=== PATIENT | female | born 1955 | race Caucasian/White ===

== ENCOUNTER 2019-10-29 08:21 | Outpatient (CLI) | payer BC, SELFPAY ==
--- NOTE | 2019-10-29 08:33 | MM_ITS ---
WS: [id number] BILATERAL SCREENING DIGITAL MAMMOGRAM WITH CAD HISTORY: SCREENING COMPARISON: 07/31/2018, 05/29/2017 Bilateral CC and MLO views submitted. Computer aided detection analyzed. Breast composition: There are scattered areas of fibroglandular density. No suspicious masses, microc alcifications or architectural distortion. Benign lymph nodes in each breast. MM/[place] [id number] IMPRESSION: BI-RADS: 2-Benign FOLLOW UP: 1 Year Follow-up
== END 2019-10-29 08:22 | disposition home or self-care (01) ==
LOC: RADSHAW 08:26
PROVIDERS: Family Provider Internal Medicine; PCP Internal Medicine; Visit Provider Internal Medicine
DX: Z12.31 Encounter for screening mammogram for malignant neoplasm of breast (principal)
CPT/HCPCS: 77067

== ENCOUNTER 2020-11-25 10:31 | Outpatient (CLI) | payer BC, SELFPAY ==
--- NOTE | 2020-11-25 10:37 | MM_ITS ---
WS: [id number] SCREENING DIGITAL MAMMOGRAM WITH CAD HISTORY: SCREENING COMPARISON: 10/29/2019 and 07/31/2018 Bilateral CC and MLO views submitted. Computer aided detection analyzed. Breast composition: There are scattered areas of fibroglandular density. No suspicious masses, microc alcifications or architectural distortion. MM/[place] [id number] IMPRESSION: BI-RADS: 1-Negative FOLLOW UP: 1 Year Follow-up
== END 2020-11-25 10:32 | disposition home or self-care (01) ==
LOC: RADSHAW 10:34
PROVIDERS: PCP Internal Medicine; Visit Provider Internal Medicine
DX: Z12.31 Encounter for screening mammogram for malignant neoplasm of breast (principal)
CPT/HCPCS: 77067

== ENCOUNTER 2021-03-31 06:03 | Outpatient (CLI) | payer OTHER, SELFPAY ==
[2021-03-31 06:34] VITALS: BP 156/102; PULSE 72; RESP 18; TEMP 36.3; O2SAT 99
--- NOTE | 2021-03-31 07:18 | ED_ITS ---
HPI - General Adult General: Source: patient Mode of arrival: ambulatory Limitations: no limitations History of Present Illness: HPI narrative: Patient here for Covid infusion. Diagnosed with Covid recently. complaint: Covid infusion Severity: mild Associated symptoms: Reports cough; Deny chest pain, dyspnea, headache(s), nausea, rash, palpitations or vomiting Treatments prior to arrival: none Review of Systems Const: Denies: fever(s) or chills Eyes: Denies: change in vision ENMT: Denies: throat pain Card: Denies: chest pain or palpitations Resp: Reports: productive cough (Clear sputum); Denies: dyspnea GI: Denies: abdominal pain, nausea or vomiting : Denies: flank pain Musc: Denies: neck pain or back pain Skin/Breast: Denies: rash or pruritus Neuro: Denies: headache(s) or numbness in extremities Psych: Denies: anxiety Gio/Lymph: Denies: enlarged lymph nodes PFSH ED PFSH: Medical History Depression HTN (hypertension) Family History Other CAD (coronary artery disease) Social History Smoking and tobacco status: former smoker History of recent travel: No Physical Exam Const: COMMON NORMALS: no acute distress, patient oriented x3, no limitations and well nourished GENERAL APPEARANCE: cooperative HENMT: COMMON NORMALS: normocephalic and atraumatic HEAD & SCALP: normocephalic and atraumatic FACE & SINUS: normal facial exam Eye: COMMON NORMALS: EOMs intact bilaterally Neck/C-Spine: COMMON NORMALS: full ROM, no lymphadenopathy, supple and no meningeal signs GENERAL: Yes normal visual inspection Lymph: LYMPHATIC: no lymphadenopathy noted Chest: COMMONS NORMALS: normal inspection of the chest and normal palpation of entire chest wall CHEST: No Ecchymosis present and No rash Resp: COMMON NORMALS: normal respiratory effort, No retractions and clear to auscultation bilaterally EFFORT & INSPECTION: No respiratory distress AUSCULTATION: clear to auscultation bilaterally Cardio: COMMON NORMALS: regular rate, regular rhythm and Peripheral pulses 2+ throughout JUGULAR VENOUS DISTENTION: no JVD RATE: regular rate RHYTHM: regular rhythm PERIPHERAL PULSES: Peripheral pulses 2+ throughout GI: COMMON NORMALS: Normal to inspection, nondistended, normoactive bowel sounds present and non-tender : COMMON NORMALS: Yes no CVA tenderness BLADDER/KIDNEY EXAM: Yes no CVA tenderness Back/Pelvis: COMMON NORMALS: no CVA tenderness Extremity: COMMON NORMALS: normal to inspection, full ROM and capillary refill normal Neuro: COMMON NORMALS: patient oriented x3, CN's II-XII intact bilaterally, no focal motor deficits and no sensory deficits noted MENINGEAL SIGNS: Yes no meningeal signs Psych: COMMON NORMALS: mental status grossly normal and Normal thought process present THOUGHT PROCESS: Normal thought process present Skin: COMMON NORMALS: no rashes or lesions noted and no wounds GENERAL SKIN EXAM: no rashes or lesions noted Course Vital Signs: Vital signs: Vital Signs Temperature 97.4 F L 03/31/21 06:34 Pulse Rate 72 03/31/21 06:34 Respiratory Rate 18 03/31/21 06:34 Blood Pressure 156/102 03/31/21 06:34 Pulse Oximetry 99 03/31/21 06:34 Discharge Plan Discharge Patient Disposition: Home Prescriptions: No Action metoprolol tartrate 25 mg tablet 12.5 mg PO BID RF: 0 duloxetine [Cymbalta] 60 mg capsule,delayed release(DR/EC) 60 mg PO DAILY RF: 0 aspirin [Adult Aspirin Regimen] 81 mg tablet,delayed release (DR/EC) 81 mg PO DAILY RF: 0 ciclopirox 8 % solution 1 applic topical DAILY Qty: 6.6 RF: 3 ketoconazole 2 % cream 1 applic topical BID Qty: 60 RF: 2 Referrals: Jeana Chinchilla MD [Primary Care Provider] - Coding Level of Care Code ED Registered Nurse Practitioner for [place]
[2021-03-31 09:53] VITALS: BP 133/90; PULSE 69; RESP 15; O2SAT 97
[2021-03-31 11:04] VITALS: BP 123/90; PULSE 68; RESP 16; O2SAT 98
--- NOTE | 2021-03-31 11:05 | PC.NURSE ---
PT RCVD INFUSION AND MONITORED FOR ONE HOUR POST INFUSION WITH NO ADVERSE EFFECTS OBSERVED OR REPORTED. PT WILL BE DC HOME.
== END 2021-03-31 06:04 | disposition home or self-care (01) ==
PROVIDERS: PCP Internal Medicine; Visit Provider Internal Medicine
DX: U07.1 COVID-19 (principal)
CPT/HCPCS: 96365

== ENCOUNTER → 2021-12-13 14:23 | Outpatient (BNVA) | payer MEDICARE, SELFPAY | PROVIDERS: PCP Internal Medicine; Visit Provider Nurse Practitioner Family | DX: S82.142A Displaced bicondylar fracture of left tibia, initial encounter for closed fracture (principal); M25.472 Effusion, left ankle; M25.572 Pain in left ankle and joints of left foot; W19.XXXA Unspecified fall, initial encounter; Y92.009 Unspecified place in unspecified non-institutional (private) residence as the place of occurrence of the external cause; M25.562 Pain in left knee | CPT/HCPCS: 73562; 73610 ==

== ENCOUNTER 2021-12-14 16:00 | Outpatient (CLI) | payer MEDICARE, SELFPAY | END 2021-12-14 16:01 | disposition home or self-care (01) | LOC: SPT 16:03 | PROVIDERS: PCP Internal Medicine; Visit Provider Specialist | DX: Z46.89 Encounter for fitting and adjustment of other specified devices (principal); S82.222D Displaced transverse fracture of shaft of left tibia, subsequent encounter for closed fracture with routine healing; X58.XXXD Exposure to other specified factors, subsequent encounter | CPT/HCPCS: 97760; L1812 ==

== ENCOUNTER 2021-12-15 14:14 | Outpatient (CLI) | payer MEDICARE, SELFPAY ==
--- NOTE | 2021-12-15 14:30 | CTR_ITS ---
PROCEDURE INFORMATION: Exam: CT Left Lower Extremity Without Contrast, Knee Exam date and time: 12/15/2021 2:38 PM Age: 65 years old Clinical indication: Injury or trauma; Blunt trauma; Knee; Left; Injury details: Fall x1 wk, PT states surgery scheduled 12/16/2021; Additional info: S82.209a - unspecified fracture of shaft of unspecified t. . . , Stat/emergent TECHNIQUE: Imaging protocol: CT of the Left lower extremity without contrast was performed. Exam focused on the knee. Axial, coronal and sagittal reformatted images were created and reviewed. Radiation optimization: All CT scans at this facility use at least one of these dose optimization techniques: automated exposure control; mA and/or kV adjustment per patient size (includes targeted exams where dose is matched to clinical indication); or iterative reconstruction. COMPARISON: CR XR knee LT 3V* [id number] 12/13/2021 2:37 PM RADIATION DOSE METRICS: Total DLP (mGy-cm): 413.04 FINDINGS: Bones/joints: Comminuted, mildly displaced fracture through the posterior aspect of the lateral tibial plateau with approximately 3 mm depression. No dislocation. Moderate hemarthrosis. Soft tissues: Mild anterior soft tissue swelling. CT/CT knee LT wo con* [id number] IMPRESSION: 1. Lateral tibial plateau fracture, as described above. 2. Additional findings, as above.
== END 2021-12-15 14:15 | disposition home or self-care (01) ==
LOC: RAD 14:20
PROVIDERS: PCP Internal Medicine; Visit Provider Specialist
DX: S82.202A Unspecified fracture of shaft of left tibia, initial encounter for closed fracture (principal); X58.XXXA Exposure to other specified factors, initial encounter
CPT/HCPCS: 73700; 87635

== ENCOUNTER → 2021-12-21 09:13 | Outpatient (BNVA) | payer MEDICARE, SELFPAY | PROVIDERS: PCP Internal Medicine; Visit Provider Specialist | DX: S82.122A Displaced fracture of lateral condyle of left tibia, initial encounter for closed fracture (principal); X58.XXXA Exposure to other specified factors, initial encounter | CPT/HCPCS: 73560; 73562 ==

== ENCOUNTER → 2022-01-11 15:09 | Outpatient (BNVA) | payer MEDICARE, SELFPAY | PROVIDERS: PCP Internal Medicine; Visit Provider Specialist | DX: S82.122D Displaced fracture of lateral condyle of left tibia, subsequent encounter for closed fracture with routine healing (principal); W11.XXXD Fall on and from ladder, subsequent encounter | CPT/HCPCS: 73560; 73565 ==

== ENCOUNTER 2022-02-28 10:04 | Outpatient (CLI) | payer MEDICARE, SELFPAY ==
--- NOTE | 2022-02-28 10:16 | MM_ITS ---
WS: [id number] Bilateral screening 3D tomosynthesis digital mammogram, 02/28/2022 Clinical Data: SCREENING Comparison: 11/25/2020, 10/29/2019, 07/31/2018, 05/29/2017, 09/09/2015, 08/06/2013, 11/01/2011, 10/13/2011, 06/23/2010, 03/02/2029, 02/07/2028, 02/15/2007. Findings: The breast parenchymal pattern shows fibroglandular tissue No spiculated masses or clustered calcific ations are seen. There are no secondary signs of carcinoma. MM/[place] [id number] Impression: 1. Negative bilateral mammogram unchanged. 2. Recommend annual screening mammograms. BIRADS: 1-Negative FOLLOW UP: 1 Year Follow-up The CAD fish checker was used.
== END 2022-02-28 10:05 | disposition home or self-care (01) ==
LOC: RAD 10:07
PROVIDERS: PCP Internal Medicine; Visit Provider Internal Medicine
DX: Z12.31 Encounter for screening mammogram for malignant neoplasm of breast (principal)
CPT/HCPCS: 77063; 77067

== ENCOUNTER 2022-03-01 15:42 | Emergency (ER) | payer MEDICARE, SELFPAY ==
--- NOTE | 2022-03-01 16:02 | ED_ITS ---
HPI - Chest Pain General: Chief Complaint: Chest Pain Stated Complaint: CHEST PAIN Time Seen by Provider: 03/01/22 15:49 Source: patient Mode of arrival: ambulatory Limitations: no limitations History of Present Illness: 66-year-old female presents emergency room with complaints of lower sternal chest pain. Pain has been going on for last 3 days is worse today she is not noticing thing exacerbates or relieves it although during exam there was worsened by palpation but not by inspiration. She has no known history of coronary disease she is not diabetic. She is not taking anything for it at this point. MD complaint: chest pain Pertinent past history: coronary artery disease Onset (ago): minute(s) Timing of current episode: episodic Onset: during rest Pain location: right chest and epigastric Pain radiation: none Severity: mild Quality: sharp Relieving factors: nothing Exacerbating factors: nothing Associated symptoms: Deny abdominal pain, diaphoresis, dyspnea, fever(s), leg edema, nausea, palpitations, sense of impending doom, syncope or vomiting Treatment prior to arrival: aspirin (By EMS) and nitroglycerin (By EMS) Review of Systems Const: Denies: fever(s), chills or diaphoresis ENMT: Denies: throat pain, ear or mastoid pain, nasal discharge or nasal congestion Card: Reports: chest pain; Denies: palpitations, irregular heart rhythm, edema or syncope Resp: Denies: dyspnea, productive cough or non-productive cough GI: Denies: abdominal pain, nausea or vomiting : Denies: flank pain, difficulty voiding, dysuria, urinary frequency or urinary urgency Skin/Breast: Denies: rash or pruritus PFSH ED PFSH: Medical History Depression History of nonmelanoma skin cancer HTN (hypertension) Family History Other CAD (coronary artery disease) Social History Smoking and tobacco status: never smoked History of recent travel: No Physical Exam Const: GENERAL APPEARANCE: cooperative and comfortable ORIENTATION/CON SCIOUSNESS: Yes awake, Yes oriented to person, Yes oriented to place and Yes oriented to time HENMT: COMMON NORMALS: normocephalic, atraumatic and hearing grossly normal bilaterally HEAD & SCALP: normocephalic and atraumatic Neck/C-Spine: COMMON NORMALS: no JVD Resp: COMMON NORMALS: normal respiratory effort, No retractions, No use of accessory muscles and clear to auscultation bilaterally AUSCULTATION: clear to auscultation bilaterally Cardio: COMMON NORMALS: no JVD, regular rate, regular rhythm and No murmurs p resent (Cardio) RATE: regular rate RHYTHM: regular rhythm GI: COMMON NORMALS: Soft to palpation and No hepatosplenomegaly present AUSCULTATION: Yes normoactive bowel sounds PALPATION: Yes Soft to palpation, No Tenderness to palpation present (GI), No Guarding due to palpation present (GI) and Yes No hepatosplenomegaly present Extremity: COMMON NORMALS: normal to inspection, capillary refill normal, no clubbing, cyanosis or edema, no calf tenderness and no pedal edema Neuro: SENSORIUM/ORIENTATION: Yes oriented to person, Yes oriented to place and Yes oriented to time Skin: COMMON NORMALS: no rashes or lesions noted GENERAL SKIN EXAM: no rashes or lesions noted Course Vital Signs: Vital signs: Vital Signs Temperature 97.8 F 03/01/22 16:12 Pulse Rate 79 03/01/22 18:28 Respiratory Rate 19 H 03/01/22 18:28 Blood Pressure 147/92 03/01/22 18:28 Pulse Oximetry 100 03/01/22 18:28 MDM - Chest Pain Medical Decision Making Labs and EKG reviewed. She has had this for several days pain is very reproducible. Troponin is 6. [place] discharge home working to set her up for a outpatient stress test return to the ER if she has further problems. Medical Records I reviewed the patient's medical records. Lab Data I reviewed the patient's lab results. : 03/01/22 16:45 03/01/22 16:45 Radiology Impressions Chest X-Ray 03/01/22 16:03 IMPRESSION: No acute findings. Laboratory Results WBC 8.0 10^3/uL (4.0-10.0) 03/01/22 16:45 RBC 4.81 10^6/uL (4.1-5.3) 03/01/22 16:45 Hgb 14.3 g/dL (11.5-15.3) 03/01/22 16:45 Hct 43.1 % (37.0-47.0) 03/01/22 16:45 MCV 89.6 fl (81-99) 03/01/22 16:45 MCH 29.7 pg (28.0-34.0) 03/01/22 16:45 MCHC 33.2 g/dL (30.0-36.0) 03/01/22 16:45 RDW 12.4 % (12.1-15.1) 03/01/22 16:45 Plt Count 359 10^3/cmm (130-400) 03/01/22 16:45 MPV 10.3 fL (7.4-10.4) 03/01/22 16:45 Neut % (Auto) 62.1 % 03/01/22 16:45 Lymph % (Auto) 23.1 % 03/01/22 16:45 Mineral % (Auto) 11.7 % 03/01/22 16:45 Eos % (Auto) 1.4 % 03/01/22 16:45 Baso % (Auto) 1.4 % 03/01/22 16:45 Neut # (Auto) 4.94 10^3/uL (1.8-7.7) 03/01/22 16:45 Lymph # (Auto) 1.8 10^3/uL (0.8-4.8) 03/01/22 16:45 Mineral # (Auto) 0.9 10^3/uL (0.2-0.9) 03/01/22 16:45 Eos # (Auto) 0.1 10^3/uL (0.0-0.8) 03/01/22 16:45 Baso # (Auto) 0.1 10^3/uL (0.0-0.1) 03/01/22 16:45 Nucleated RBC % (auto) 0 % 03/01/22 16:45 Nucleated RBCs # 0.0 /100WBC 03/01/22 16:45 Sodium 138 mmol/L (136-145) 03/01/22 16:45 Potassium 4.0 mmol/L (3.5-5.1) 03/01/22 16:45 Chloride 102 mmol/L (98-107) 03/01/22 16:45 Carbon Dioxide 23 mmol/L (22-29) 03/01/22 16:45 Anion Gap 17.0 (5-19) 03/01/22 16:45 BUN 14 mg/dL (8-23) 03/01/22 16:45 Creatinine 0.7 mg/dL (0.5-0.9) 03/01/22 16:45 GFR Calculation 84.0 mL/min (90-130) L 03/01/22 16:45 Glucose 125 mg/dL (65-115) H 03/01/22 16:45 Calculated Osmolality 288 mOsm/kg (285-295) 03/01/22 16:45 Calcium 9.3 mg/dL (8.5-10.5) 03/01/22 16:45 Total Bilirubin 0.3 mg/dL (0.15-1.2) 03/01/22 16:45 AST 19 U/L (0-32) 03/01/22 16:45 ALT 25 U/L (0-33) 03/01/22 16:45 Alkaline Phosphatase 89 IU/L (35-105) 03/01/22 16:45 Troponin T Baseline 6 ng/L (0-10) 03/01/22 16:45 Total Protein 7.3 g/dL (6.6-8.7) 03/01/22 16:45 Albumin 4.3 g/dL (3.5-5.2) 03/01/22 16:45 Globulin 3.0 g/dL (1.3-4.6) 03/01/22 16:45 Discharge Plan Discharge Patient Disposition: Home Clinical Impression: Chest wall pain, Atypical chest pain Condition: Stable Prescriptions: No Action duloxetine [Cymbalta] 60 mg capsule,delayed release(DR/EC) 60 mg PO DAILY 0RF aspirin [Adult Aspirin Regimen] 81 mg tablet,delayed release (DR/EC) 81 mg PO DAILY 0RF (DME) Hinged Knee Brace See Rx Instructions .Route .MEDSUPPLY Qty: 1 0RF Rx Instructions: As directed lisinopril 20 mg Tablet 20 mg PO DAILY 0RF amlodipine 5 mg tablet 5 mg PO DAILY 0RF rosuvastatin 5 mg tablet 5 mg PO DAILY 0RF Discharge Orders: Discharge ED (Routine); Ordered 03/01/22 Ordered By: Marcus Riley Referrals: Jeana Chinchilla MD [Primary Care Provider] - Patient Instructions: Opioid Safety Activity Restrictions/Additional Instructions: Case management will call to make arrangements for you to have a follow-up outpatient Lexiscan sestamibi stress test. Coding Level of Care Code ED Skating Rink Manager for [place] Fwd Exam Comprehensive
--- NOTE | 2022-03-01 16:03 | XRR_ITS ---
PROCEDURE INFORMATION: Exam: XR Chest Exam date and time: 03/01/2022 4:27 PM Age: 66 years old Clinical indication: Pain; Angina pectoris; Additional info: Chest pain TECHNIQUE: Imaging protocol: XR of the chest. Views: 1 view. COMPARISON: CR Chest 1 [place] [id number] 06/20/2019 9:49 PM FINDINGS: Lungs: Unremarkable. No consolidation. Pleural spaces: Unremarkable. No pleural effusion. No pneumothorax. Heart/Mediastinum: Unremarkable. No cardiomegaly. Bones/joints: Unremarkable. XR/XR chest 1V portable [id number] IMPRESSION: No acute findings.
--- NOTE | 2022-03-01 16:04 | ECG_ITS ---
[facility] Test Date: 2022-03-01 Pat Name: Evita Caraballo Department: Room: Gender: Female Roving Or Yarn Color Checker: : 1955 Requested By: Marcus Sheridan Order Number: [id number] Karla MD: Danis Somers M.D. Measurements Intervals [place] Rate: 74 P: 14 PA: 121 QRS: 17 QRSD: 90 T: 48 QT: 374 QTc: 417 Interpretive Statements SINUS RHYTHM LOW QRS VOLTAGE IN PRECORDIAL LEADS [QRS DEFLECTION < 1.0 mV IN CHEST LEADS] NONSPECIFIC T-WAVE ABNORMALITY Compared to ECG 06/21/2019 01:00:38 No significant changes Electronically Signed On 03-01-2022 19:45:11 CDT by Danis Somers M.D. [id number]
[2022-03-01 16:12] VITALS: BP 150/83; PULSE 83; RESP 20; TEMP 36.6; O2SAT 99; BMI 39.8
[2022-03-01 16:15] VITALS: BP 150/83; PULSE 86; RESP 16; O2SAT 98
[2022-03-01 16:53] LABS: Basophils # 0.1 10^3/uL (0.0-0.1); Basophils % 1.4 %; Eosinophils # 0.1 10^3/uL (0.0-0.8); Eosinophils % 1.4 %; Hematocrit 43.1 % (37.0-47.0); Hemoglobin 14.3 g/dL (11.5-15.3); Lymphocytes # 1.8 10^3/uL (0.8-4.8); Lymphocytes % 23.1 %; Mean Corpuscular HGB Conc 33.2 g/dL (30.0-36.0); Mean Corpuscular Hemoglobin 29.7 pg (28.0-34.0); Mean Corpuscular Volume 89.6 fl (81-99); Mean Platelet Volume 10.3 fL (7.4-10.4); Monocytes # 0.9 10^3/uL (0.2-0.9); Monocytes % 11.7 %; Neutrophils # 4.94 10^3/uL (1.8-7.7); Neutrophils % 62.1 %; Nucleated Red Blood Cells % 0 %; Platelet Count 359 10^3/cmm (130-400); Red Blood Count 4.81 10^6/uL (4.1-5.3); Red Cell Distribution Width 12.4 % (12.1-15.1)
--- NOTE | 2022-03-01 17:08 | PC.NURSE ---
PT placed on continuous NIBP, SpO2, and CM
[2022-03-01 17:15] VITALS: BP 152/93; PULSE 84; RESP 20; O2SAT 96
[2022-03-01 17:22] LABS: Troponin(5th) Baseline 6 ng/L (0-10)
[2022-03-01 17:26] LABS: Alanine Aminotransferase 25 U/L (0-33); Albumin Level 4.3 g/dL (3.5-5.2); Alkaline Phosphatase 89 IU/L (35-105); Aspartate Amino Transferase 19 U/L (0-32); Blood Urea Nitrogen 14 mg/dL (8-23); Calcium 9.3 mg/dL (8.5-10.5); Carbon Dioxide 23 mmol/L (22-29); Chloride 102 mmol/L (98-107); Glucose 125 mg/dL (65-115); Osmolality Calculated 288 mOsm/kg (285-295); Sodium 138 mmol/L (136-145); Total Bilirubin 0.3 mg/dL (0.15-1.2); Total Protein 7.3 g/dL (6.6-8.7)
--- NOTE | 2022-03-01 18:04 | ECG_ITS ---
[facility] Test Date: 2022-03-01 Pat Name: Evita Caraballo Department: Room: Gender: Female Fundraising Assistant: : 1955 Requested By: Marcus Sheridan Order Number: [id number] Reading MD: Danis Somers M.D. Measurements Intervals [place] Rate: 76 P: 49 NC: 127 QRS: 11 QRSD: 91 T: 44 QT: 402 QTc: 452 Interpretive Statements SINUS RHYTHM LOW QRS VOLTAGE IN PRECORDIAL LEADS [QRS DEFLECTION < 1.0 mV IN CHEST LEADS] NONSPECIFIC T-WAVE ABNORMALITY Compared to ECG 03/01/2022 16:12:45 No significant changes Electronically Signed On 03-01-2022 19:50:41 CDT by Danis Somers M.D. [email or web address].[employer]/store/[id number]
[2022-03-01 18:28] VITALS: BP 147/92; PULSE 79; RESP 19; O2SAT 100
--- NOTE | 2022-03-02 10:50 | DCPLANNER ---
Addendum entered by Bebe Rose 05/23/22 12:04: Patient had an outpatient stress test for patient scheduled for 03.28.22 - patient did attend appointment. Addendum entered by Bebe Rose 03/20/22 06:29: Patient has an outpatient stress test scheduled for Monday, March 28, 2022 at 11:30. Centralized scheduling will call patient with appointment information. Original Note: sterile processing manager had message to schedule an out patient stress test. sterile processing manager faxed signed order to centralized scheduling, who will call patient with appointment information.
== END 2022-03-01 18:30 | disposition home or self-care (01) ==
PROVIDERS: Emergency Provider Family Medicine; PCP Internal Medicine
DX: R07.89 Other chest pain (principal); Z79.82 Long term (current) use of aspirin; I10 Essential (primary) hypertension
CPT/HCPCS: 71045; 80053; 84484; 85025; 93005; 99285

== ENCOUNTER 2022-03-28 08:56 | Outpatient (CLI) | payer MEDICARE, MEDICAID, SELFPAY ==
[2022-03-28 09:27] VITALS: BMI 42.5
--- NOTE | 2022-03-28 09:36 | NMCV_ITS ---
NM rafa perf SPECT r/s* [id number] Evita Caraballo Age: 66 Gender: F : 1955 Exam Date: 03/28/2022 09:56 Ordering Phys: Jeana Chinchilla MD Technologist: CIARA Yadav Exam Location: [facility] Indications: CHEST PAIN STRESS TEST Please see separate stress test report in [facility] for full findings IMAGE PROTOCOL Rest/Stress 1 Lexiscan Day Radiopharmaceutical Dose (mCi) Administration Site Administered by Rest: Tc-99m 10.8 IV CIARA Carrington Sestamibi Stress:Tc-99m 32.4 IV CIARA Carrington Sestamibi Rest: 28-Mar-2022 60 Discovery 630 Stress: 28-Mar-2022 30 Discovery 630 0.4mg Lexiscan. Images obtained in supine and prone position. SPECT RESULTS Technical Quality: Excellent Raw Data Analysis: Normal Image Corrections: No attenuation or motion correction applied Summed Stress Score: 0 Summed Rest Score: 0 Summed Difference Score: 0 PERFUSION FINDINGS SPECT images demonstrate homogeneous tracer distribution throughout the myocardium. FUNCTIONAL RESULTS (calculated via Gated SPECT) Stress Image LV EF (%): 78 Stress EDV (mL):69 TID: 1.25 Stress ESV (mL):15 FUNCTIONAL FINDINGS: The left ventricle is normal in size. Transient Ischemia Dilatation of 1.25. There is normal left ventricular systolic function. The left ventricular ejection fraction is normal with a value of 78%. There is normal left ventricular wall thickening. IMPRESSIONS 1. Myocardial perfusion imaging is normal. 2. Overall left ventricular systolic function is normal without regional wall motion abnormalities, LVEF=78%. 3. Transient ischemic dilation index mildly increased at 1.25. This may represent hypertensive response/subendocardial ischemia. Clinical correlation is advised. 4. No significant EKG changes with Lexiscan infusion. Refer to separate report for details. Franci Hughes MD (Electronically Signed) Final Date: 30 March 2022 12:10 S
--- NOTE | 2022-03-28 09:36 | ECG_ITS ---
[facility] Test Date: 2022-03-28 Pat Name: Evita Caraballo Department: Room: Gender: Female Hiv Cts Specialist: Aimee Stone : 1955 Requested By: Jeana Vallecillo Order Number: [id number] Karla MD: Franci Hughes M.D. Interpretive Statements NAME OF STUDY: LEXISCAN SESTAMIBI STRESS TEST INDICATION: Chest Pain PROCEDURE: At the baseline, the blood pressure was 133/95 mmHg, oxygen saturation 98% with a heart rate of 69 bpm. The electrocardiogram showed normal sinus rhythm, normal axis. Poor anterior R wave progression. Nonspecific ST depression. The Lexiscan was infused over a period of 20 seconds. A total of 0.4 milligrams of Lexiscan was infused. The stress phase was continued for a total of 5 minutes. Heart rate at the end of the stress phase was 75 bpm, oxygen saturation 97% with a blood pressure of 123/81 mmHg. The EKG at the peak infusion revealed sinus rhythm with no significant ST-T wave changes. The study was terminated due to protocol completion. Sestamibi was injected 20 seconds after the Lexiscan infusion. Blood pressure at the end of the recovery phase was 137/83 mmHg, oxygen saturation 97% with a heart rate of 78 beats per minute. CONCLUSION: 1. No significant EKG changes with the LexiScan infusion. 2. No LexiScan induced chest pain or cardiac arrhythmia. 3. Normal blood pressure and heart rate response. 4. Sestamibi/sestamibi perfusion scan pending; see separate report. Electronically Signed On 03-30-2022 12:06:03 CDT by Franci Hughes M.D. [email or web address] Con [email or web address].[email or web address]/store/OM/[id number]
[2022-03-28] MEDS: regadenoson 0.4 Mg/5 ml Syringe IVP (10:35)
[2022-03-28 10:49] VITALS: BP 137/83; PULSE 79
== END 2022-03-28 08:57 | disposition home or self-care (01) ==
LOC: CDL 08:58
PROVIDERS: PCP Internal Medicine; Visit Provider Internal Medicine
DX: R07.9 Chest pain, unspecified (principal)
CPT/HCPCS: 78452; 93017; A9500; J2785

== ENCOUNTER → 2022-08-09 08:48 | Outpatient (BNVA) | payer MEDICARE, MEDICAID, SELFPAY | PROVIDERS: PCP Internal Medicine; Visit Provider Podiatrist Foot & Ankle Surgery | DX: M21.611 Bunion of right foot (principal); M21.612 Bunion of left foot; M25.871 Other specified joint disorders, right ankle and foot; M20.41 Other hammer toe(s) (acquired), right foot; M20.42 Other hammer toe(s) (acquired), left foot; L60.3 Nail dystrophy | CPT/HCPCS: 73630; 99203 ==

== ENCOUNTER → 2022-10-09 13:46 | Outpatient (BNVA) | payer MEDICARE, SELFPAY | PROVIDERS: PCP Internal Medicine; Visit Provider Podiatrist Foot & Ankle Surgery | DX: M21.611 Bunion of right foot (principal); M25.871 Other specified joint disorders, right ankle and foot; M21.612 Bunion of left foot; M20.41 Other hammer toe(s) (acquired), right foot; M20.42 Other hammer toe(s) (acquired), left foot; L60.3 Nail dystrophy; M76.61 Achilles tendinitis, right leg | CPT/HCPCS: 99213 ==

== ENCOUNTER 2023-02-22 09:05 | Outpatient (CLI) | payer MEDICARE, MEDICAID, SELFPAY | END 2023-02-22 09:06 | disposition home or self-care (01) | LOC: RT 09:06 | PROVIDERS: PCP Internal Medicine; Visit Provider Nurse Practitioner Family | DX: R06.2 Wheezing (principal) | CPT/HCPCS: 94010 ==

== ENCOUNTER 2023-03-02 08:10 | Outpatient (CLI) | payer MEDICARE, MEDICAID, SELFPAY ==
--- NOTE | 2023-03-02 08:36 | MM_ITS ---
WS: [id number] VIEWS: MLO and CC views both breasts. 3D digital tomosynthesis is also included in this exam. Comparison made with prior exam of 09/09/2015, 05/29/2017, 07/31/2018, 10/29/2019, 11/25/2020, 02/28/2022 .. Findings: There was no sign of mass, architectural distortion or suspicious calcification in either breast. Sc attered areas of fibroglandular density MM/[place] [id number] Impression: BI-RADS: 2-Benign finding FOLLOW-UP: 1 Year Follow-up This mammogram was also analyzed by the Computer Aided Detection System R2 Imag e Cemetery Manager.
== END 2023-03-02 08:11 | disposition home or self-care (01) ==
LOC: RAD 08:19
PROVIDERS: PCP Internal Medicine; Visit Provider Internal Medicine
DX: Z12.31 Encounter for screening mammogram for malignant neoplasm of breast (principal)
CPT/HCPCS: 77063; 77067

== ENCOUNTER 2024-03-06 12:06 | Outpatient (CLI) | payer MEDICARE, MEDICAID, SELFPAY ==
--- NOTE | 2024-03-06 13:20 | XR_ITS ---
WS: [id number] XR knee RT 1-2V [id number] REASON FOR EXAM: LEFT KNEE PAIN FINDINGS: Medial knee joint space is intact with minimal subchondral sclerosis. Mild narrowing of the lateral knee joint space with mild subchondral sclerosis and marginal osteophyt osis. Patellofemoral joint space appears intact and relatively well preserved. Mild subchondral sclerosis a nd osteophytosis of the patella. XR/XR knee RT 1-2V 13339 IMPRESSION: Mild osteoarthritis of the right knee.
--- NOTE | 2024-03-06 13:43 | XR_ITS ---
WS: [id number] XR knee LT 1-2V [id number] REASON FOR EXAM: L KNEE PAIN FINDINGS: No fracture or focal bone lesion. The medial knee joint space is intact and well maintained. Mild subchondral sclerosis. Minimal narrowing of the lateral joint space with minimal subchondral sclerosis. Patellofemoral joint space intact and appears relatively well-maintained. Minimal subchondral scleros is and osteophytosis of the patella. XR/XR knee LT 1-2V [id number] IMPRESSION: Minimal osteoarthritis of the left knee.
--- NOTE | 2024-03-06 13:43 | XR_ITS ---
WS: [id number] XR ankle RT 2V [id number] REASON FOR EXAM: R KNEE JOINT PAIN FINDINGS: No fracture or focal bone lesion. Joint spaces of the ankle are intact and well maintained. No soft tissue abnormality. XR/XR ankle RT 2V [id number] IMPRESSION: No significant abnormality.
== END 2024-03-06 12:07 | disposition home or self-care (01) ==
PROVIDERS: PCP Internal Medicine; Visit Provider Nurse Practitioner Family
DX: M25.562 Pain in left knee (principal)
CPT/HCPCS: 73560; 73600

== ENCOUNTER → 2024-04-14 08:51 | Outpatient (BNVA) | payer MEDICARE, MEDICAID, SELFPAY | PROVIDERS: PCP Internal Medicine; Visit Provider Specialist | DX: M25.561 Pain in right knee (principal); M25.562 Pain in left knee; S82.122D Displaced fracture of lateral condyle of left tibia, subsequent encounter for closed fracture with routine healing; X58.XXXD Exposure to other specified factors, subsequent encounter | CPT/HCPCS: 73560; 73565; 99213 ==

== ENCOUNTER 2024-04-28 13:58 | Outpatient (CLI) | payer MEDICARE, MEDICAID, SELFPAY ==
--- NOTE | 2024-04-28 13:59 | MM_ITS ---
WS: [email or web address] BILATERAL 3D TOMOSYNTHESIS DIGITAL SCREENING MAMMOGRAPHY WITH CAD CLINICAL INFORMATION: SCREENING HISTORY: Screening mammogram. No current complaints. COMPARISON: 2022 TECHNIQUE: Bilateral CC and MLO views. FINDINGS: The breasts are composed of heterogeneous fibroglandular density tissue, which can limit the detectio n of small underlying mass lesions. Progressed spiculated asymmetric density upper outer LEFT breast best seen on the cc view. Recommend ultrasound upper outer quadrant LEFT breast. RIGHT breast is unremarkable and unchanged. MM/[place] [id number] IMPRESSION: BI-RADS: 0-Incomplete: Need additional imaging evaluation FOLLOW UP: Need Additional Imaging Recommend ultrasound upper outer quadrant LEFT breast.
== END 2024-04-28 13:59 | disposition home or self-care (01) ==
LOC: RAD 13:58
PROVIDERS: PCP Internal Medicine; Visit Provider Internal Medicine
DX: Z12.31 Encounter for screening mammogram for malignant neoplasm of breast (principal); R92.333 Mammographic heterogeneous density, bilateral breasts; R92.8 Other abnormal and inconclusive findings on diagnostic imaging of breast
CPT/HCPCS: 77063; 77067

== ENCOUNTER → 2024-05-15 10:11 | Outpatient (BNVA) | payer MEDICARE, MEDICAID, SELFPAY | PROVIDERS: PCP Internal Medicine; Visit Provider Nurse Practitioner Family | DX: D48.5 Neoplasm of uncertain behavior of skin (principal); L57.0 Actinic keratosis; L81.4 Other melanin hyperpigmentation; D22.5 Melanocytic nevi of trunk; L85.3 Xerosis cutis; L57.8 Other skin changes due to chronic exposure to nonionizing radiation; Z85.828 Personal history of other malignant neoplasm of skin; L90.5 Scar conditions and fibrosis of skin; D36.12 Benign neoplasm of peripheral nerves and autonomic nervous system, upper limb, including shoulder | CPT/HCPCS: 11102; 17000; 99213 ==

== ENCOUNTER 2024-05-29 13:38 | Outpatient (CLI) | payer MEDICARE, MEDICAID, SELFPAY ==
--- NOTE | 2024-05-29 13:45 | MM_ITS ---
WS: [email or web address] LEFT 3D TOMOSYNTHESIS DIGITAL MAMMOGRAPHY WITH CAD CLINICAL INFORMATION: ABNORMAL MAMMOGRAM HISTORY: Additional views COMPARISON: 04/28/2024 TECHNIQUE: 3 views of the left breast were obtained. FINDINGS: The left breast is composed of heterogeneous fibroglandular density tissue, which can limit the detec tion of small underlying mass lesions. Again seen is the spiculated asymmetric density upper outer LE FT breast. This partially compresses out on the spot compression views. Ultrasound is pending. ULTRASOUND BREAST LEFT TECHNIQUE: Ultrasound left breast focused area of concern. CLINICAL INFORMATION: ABNORMAL MAMMOGRAM FINDINGS: Ultrasound upper outer quadrant LEFT breast. Dense underlying parenchymal tissue. No cystic or solid abnormalities. No suspicious lesions to targe t for biopsy. Findings are benign. Recommend return to annual screening mammography. MM/[place] [id number] IMPRESSION: BI-RADS: 2-Benign FOLLOW UP: 1 Year Follow-up Recommend return to annual screening mammography.
== END 2024-05-29 13:39 | disposition home or self-care (01) ==
LOC: RAD 13:39
PROVIDERS: PCP Internal Medicine; Visit Provider Internal Medicine
DX: R92.8 Other abnormal and inconclusive findings on diagnostic imaging of breast (principal); R92.333 Mammographic heterogeneous density, bilateral breasts; N64.89 Other specified disorders of breast
CPT/HCPCS: 76642; 77061; G0279

== ENCOUNTER → 2024-06-09 08:00 | Outpatient (BNVA) | payer MEDICARE, MEDICAID, SELFPAY | PROVIDERS: PCP Internal Medicine; Visit Provider Dermatology | DX: C44.319 Basal cell carcinoma of skin of other parts of face (principal); D04.39 Carcinoma in situ of skin of other parts of face | CPT/HCPCS: 13132; 17311; 99213 ==

== ENCOUNTER → 2024-10-23 13:38 | Outpatient (BNVA) | payer MEDICARE, MEDICAID, SELFPAY | PROVIDERS: PCP Internal Medicine; Visit Provider Nurse Practitioner Family | DX: L81.4 Other melanin hyperpigmentation (principal); D22.5 Melanocytic nevi of trunk; L57.8 Other skin changes due to chronic exposure to nonionizing radiation; L81.5 Leukoderma, not elsewhere classified; X32.XXXA Exposure to sunlight, initial encounter; L57.0 Actinic keratosis; Z08 Encounter for follow-up examination after completed treatment for malignant neoplasm; Z85.828 Personal history of other malignant neoplasm of skin | CPT/HCPCS: 17000; 99213 ==

== ENCOUNTER 2025-02-04 10:40 | Outpatient (CLI) | payer MEDICARE, SELFPAY | END 2025-02-04 10:41 | disposition home or self-care (01) | LOC: SLEEP 10:44 | PROVIDERS: PCP Internal Medicine; Visit Provider Internal Medicine | DX: G47.33 Obstructive sleep apnea (adult) (pediatric) (principal) | CPT/HCPCS: G0399 ==

== ENCOUNTER → 2025-03-09 15:43 | Outpatient (BNVA) | payer MEDICARE, SELFPAY | PROVIDERS: PCP Internal Medicine; Visit Provider Nurse Practitioner Family | DX: L23.9 Allergic contact dermatitis, unspecified cause (principal); L81.4 Other melanin hyperpigmentation; D22.5 Melanocytic nevi of trunk; L57.8 Other skin changes due to chronic exposure to nonionizing radiation; L81.5 Leukoderma, not elsewhere classified; X32.XXXA Exposure to sunlight, initial encounter; L57.0 Actinic keratosis; Z08 Encounter for follow-up examination after completed treatment for malignant neoplasm; Z85.828 Personal history of other malignant neoplasm of skin | CPT/HCPCS: 17000; 99214 ==